=== PATIENT | female | born 1990 | race Caucasian/White ===

== ENCOUNTER 2018-12-19 13:59 | Emergency (ER) | payer OTHER ==
[~2018-12-19] VITALS: Ht 167.6 cm; Wt 67.0 kg
[~2018-12-19 13:59] MED LIST: PREN-15 PO
[2018-12-19 14:23] VITALS: BP 131/81; PULSE 59; RESP 18; Ht 167.6 cm; Wt 67.0 kg
[2018-12-19] MEDS ORDERED: KETOROLAC 30 MG INJ IV STA (14:56)
[2018-12-19] MEDS ORDERED: MECLIZINE 12.5 MG TAB PO ONE (15:00)
[2018-12-19] MEDS ORDERED: IBUP-1542 PO (15:38)
[2018-12-19] MEDS ORDERED: MECL12.574 PO (15:38)
--- NOTE | 2018-12-19 17:10 | ERD ---
ER Documentation Chief Complaint Chief Complaint valdez, vomitting and dizziness x1wk HPI 28 female with a history of headaches presents with intermittent headache for the past week. In addition she states that she has been also feeling dizzy. Denies sudden onset, worse headache of life, fever, neck stiffness, rash, h eadache getting worse with change in position, headache initiated by exertion, AVLDEZ worse in the morning, VALDEZ waking up patient at night, new neurological deficits, numbness, weakness, vision problems, tenderness to palpation over temporal area, history of trauma, or possibility of CO2 poisoning. Denies past medical history. Denies allergies. Denies surgeries. Sean alcohol, tobacco, drug use. Up to date on vaccines. ROS All systems reviewed and are negative except as per history of present illness. Medications Home Meds Active Scripts Ibuprofen* (Motrin*) 600 Mg Tab, 600 MG PO Q6, #30 TAB Prov:SHANTA ALVARENGA 12/19/18 Meclizine Hcl* (Antivert*) 12.5 Mg Tab, 12.5 MG PO Q6H PRN for DIZZINESS, #20 TAB Prov:SHANTA ALVARENGA 12/19/18 Reported Medications Vit/Fe Fumarate/Fa (Prenafirst Tablet) 1 Tab Tablet, 11 PO, #1 02/25/11 Allergies Allergies: Coded Allergies: No Known Allergies (Verified Allergy, Unknown, 02/25/11) PMhx/Soc Medical and Surgical Hx: pt denies Medical Hx, pt denies Surgical Hx Hx Alcohol Use: No Hx Substance Use: No Smoking Status: Never smoker FmHx Family History: No diabetes, No coronary disease, No other Physical Exam Vitals Vital Signs Date Temp Pulse Resp B/P (MAP) Pulse Ox O2 O2 Flow FiO2 Time Delivery Rate 12/19/18 97.4 59 18 131/81 100 14:23 (98) Physical Exam Const: No acute distress Head: Atraumatic Eyes: Normal Conjunctiva. PERRLA. EOMs intact. ENT: Normal External Ears, Nose and Mouth. Neck: Full range of motion. No meningismus. Resp: Clear to auscultation bilaterally Cardio: Regular rate and rhythm, no murmurs Abd: Soft, non tender, non distended. Normal bowel sounds Skin: No petechiae or rashes Back: No midline or flank tenderness Ext: No cyanosis, or edema Neur: Awake and alert Psych: Normal Mood and Affect Neuro: M/S: Alert and oriented Face: EOMI, face and pharynx with normal sensation and function Motor: Normal strength throughout Sensation: Normal sensation throughout Speech: Normal Cerebel: Normal coordination Normal gait Normal finger to nose DTR: 2+ and symmetric upper/lower extremities Results 24 hrs Laboratory Tests Test 12/19/18 15:23 12/19/18 15:39 POC Beta HCG, Qualitative NEGATIVE Bedside Glucose 87 mg/dL Current Medications Medications Dose Sig/Dustin Start Time Status Last (Trade) Ordered Route PRN Stop Time Admin Dose Reason Admin Ketorolac 30 mg ONCE STAT 12/19/18 DC 12/19/18 Tromethamine IV 14:56 12/19/18 15:26 (Toradol) 14:59 Meclizine 25 mg ONCE ONCE 12/19/18 DC 12/19/18 HCl PO 15:00 12/19/18 15:24 (Antivert) 15:01 Procedures/MDM MDM: Patient was given IV Toradol as well as meclizine in the ER. Upon reassessment patient stated she felt better. Patient has history of migraines and this is consistent with another migraine. There is no indication that this is a stroke and her neuro exam is within normal limits that she is having no focal deficits. I have low suspicion for intracranial hemorrhage, elevated intracranial pressure, intracranial mass, aneurysm, meningitis, malignant hypertension, giant cell arteritis, carotid dissection, intracranial abscess, cerebral venous thrombosis, CO2 poisoning, or other emergent causes of headache based on patients history and exam. At this time, patient is stable for discharge and outpatient management. I have instructed the patient to follow-up with his/her primary care physician in 1-2 days. I have discussed with the patient the possibility of needing to see a specialist for further workup and imaging studies if symptoms persist. I have instructed the patient to promptly return to the ER for any new or worsening symptoms including but not limited to increased pain, fever, nausea, vomiting, weakness or LOC. The patient and/or family expressed understanding of and agreement with this plan. All questions were answered. Home care instructions were provided. DISCLAIMER: Inadvertent spelling and grammatical errors are likely due to EHR/dictation software use and do not reflect on the overall quality of patient care. Also, please note that the electronic time recorded on this note does not necessarily reflect the actual time of the patient encounter. Departure Diagnosis: Primary Impression: Headache Additional Impression: Dizziness Condition: Stable Patient Instructions: Self-Care for Headaches, Possible Causes of Dizziness or Fainting, Dizziness (Vertigo) and Balance Problems: Ensuring Your Safety, Dizziness, Unk Cause Referrals: [facility] YOU HAVE RECEIVED A MEDICAL SCREENING EXAM AND THE RESULTS INDICATE THAT YOU DO NOT HAVE A CONDITION THAT REQUIRES URGENT TREATMENT IN THE EMERGENCY DEPARTMENT. FURTHER EVALUATION AND TREATMENT OF YOUR CONDITION CAN WAIT UNTIL YOU ARE SEEN IN YOUR DOCTORS OFFICE WITHIN THE NEXT 1-2 DAYS. IT IS YOUR RESPONSIBILITY TO MAKE AN APPOINTMENT FOR FOLOW-UP CARE. IF YOU HAVE A PRIMARY DOCTOR --you should call your primary doctor and schedule an appointment IF YOU DO NOT HAVE A PRIMARY DOCTOR YOU CAN CALL OUR PHYSICIAN REFERRAL HOTLINE AT IF YOU CAN NOT AFFORD TO SEE A PHYSICIAN YOU CAN CHOSE FROM THE FOLLOWING [facility] [address] [facility]. [facility] [address] [facility] [facility] [address] [facility] [address] [facility] [address] [facility]. [facility]. [address] Additional Instructions: FOLLOW UP WITH YOUR PRIMARY CARE PHYSICIAN TOMORROW.Return to this facility if you are not improving as expected. SHANTA ALVARENGA Dec 19, 2018 17:10
== END 2018-12-19 16:09 | disposition home or self-care (01) ==
LOC: FTE 13:59
DX: R51 Headache (principal); R42 Dizziness and giddiness
CPT/HCPCS: 81025; 82962; 93005; 96374; J1885; Z7502; Z7610